=== PATIENT | male | born 1980 | race African-American/Black ===

== ENCOUNTER 2017-02-14 21:58 | Emergency (ER) | payer OTHER | END 2017-02-14 23:43 | disposition home or self-care (01) | LOC: FER 21:58 | DX: G89.29 Other chronic pain (principal); M54.5 Low back pain; R03.0 Elevated blood-pressure reading, without diagnosis of hypertension; F31.9 Bipolar disorder, unspecified; E03.9 Hypothyroidism, unspecified; G43.909 Migraine, unspecified, not intractable, without status migrainosus; F17.210 Nicotine dependence, cigarettes, uncomplicated; Z79.899 Other long term (current) drug therapy | CPT/HCPCS: J1100; J1885 ==